=== PATIENT | female | born 1985 | race Caucasian/White ===

== ENCOUNTER 2018-02-06 19:59 | Emergency (ER) | payer OTHER ==
[~2018-02-06] VITALS: Ht 172.7 cm; Wt 78.9 kg
[2018-02-07] MEDS ORDERED: VISTARIL50 MG PO (02:08)
== END 2018-02-07 02:51 | disposition home or self-care (01) ==
LOC: ER 19:59
DX: R07.89 Other chest pain (principal); R51 Headache; F06.4 Anxiety disorder due to known physiological condition